=== PATIENT | male | born 1990 | race Hispanic/Latino ===

== ENCOUNTER 2020-10-04 09:59 | Emergency (ER) | payer SELFPAY ==
[2020-10-04 10:53] VITALS: BP 123/75
--- NOTE | 2020-10-04 11:42 | Emergency Department Report ---
ED Back Pain/Injury HPI - General Chief Complaint: Back Pain/Injury Stated Complaint: BACK PAIN Time Seen by Provider: 10/04/20 11:14 Source: patient Limitations: No Limitations - History of Present Illness Initial Comments: This is a 30-year-old male with no prior medical history who presents to ED complaining of left-sided lower back pain that he is training yesterday while he was lifting a heavy box. 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 Patient states yesterday he felt strain aching throbbing type pain on the left lower back and was unable to go to work today because of the pain. Patient states he was told to come in to be evaluated. Patient denies any urinary symptoms, fall or any other trauma. Patient states pain is localized to the lower back left. Denies abdominal pain, nausea vomiting or diarrhea. MD Complaint: back pain Similar Symptoms Previously: Yes Place: work Radiation: none Severity scale (0 -10): 4 Quality: aching Consistency: intermittent Improves With: none Worsens With: movement Context: while lifting Associated Symptoms: denies other symptoms. denies: confusion, weakness, numbness, difficulty walking, difficulty urinating, incontinence, constipation, nausea/vomiting - Related Data Previous Rx's Medication Instructions Recorded Last Taken Type Ibuprofen [Motrin 400 MG tab] 400 mg PO Q8H PRN #30 tablet 10/04/20 Unknown Rx methOCARBAMOL [Robaxin TAB] 500 mg PO BID #10 tab 10/04/20 Unknown Rx Allergies Allergy/AdvReac Type Severity Reaction Status Date / Time No Known Allergies Allergy Unverified 10/04/20 10:50 ED Review of Systems ROS: Stated complaint: BACK PAIN Other details as noted in HPI Comment: All other systems reviewed and negative ED Past Medical Hx - Past Medical History Previous Medical History?: No - Surgical History Past Surgical History?: No - Social History Smoking Status: Current Every Day Smoker Substance Use Type: None - Medications Home Medications: Home Medications Medication Instructions Recorded Confirmed Last Taken Type Ibuprofen [Motrin 400 MG tab] 400 mg PO Q8H PRN #30 tablet 10/04/20 Unknown Rx methOCARBAMOL [Robaxin TAB] 500 mg PO BID #10 tab 10/04/20 Unknown Rx ED Physical Exam - General Limitations: No Limitations General appearance: alert, in no apparent distress - Head Head exam: Present: atraumatic, normocephalic - Eye Eye exam: Present: normal appearance - ENT ENT exam: Present: mucous membranes moist - Neck Neck exam: Present: normal inspection - Respiratory Respiratory exam: Present: normal lung sounds bilaterally. Absent: respiratory distress - Cardiovascular Cardiovascular Exam: Present: regular rate, normal rhythm. Absent: systolic murmur, diastolic murmur, rubs, gallop - GI/Abdominal GI/Abdominal exam: Present: soft, normal bowel sounds - Rectal Rectal exam: Present: deferred - Extremities Exam Extremities exam: Present: normal inspection - Back Exam Back exam: Present: normal inspection, full ROM, tenderness (Mild tenderness to the palpation of the latissimus dorsi muscles., Normal spinal tenderness.). Absent: CVA tenderness (R), CVA tenderness (L) - Neurological Exam Neurological exam: Present: alert, oriented X3 - Psychiatric Psychiatric exam: Present: normal affect, normal mood - Skin Skin exam: Present: warm, dry, intact, normal color. Absent: rash ED Course Vital Signs 10/04/20 10:52 Temperature 98.7 F Pulse Rate 72 Respiratory 18 Rate Blood Pressure 123/75 O2 Sat by Pulse 98 Oximetry ED Medical Decision Making - Medical Decision Making 89year-old female presents to ED with myalgia of the lower back. Vital signs are normal patient is in no acute distress Discussed with patient follow-up with primary care physician. Discussed the patient and take medications as prescribed. Patient has no neurological deficit. Patient is alert and oriented 3 and understands all instructions given. Discussed heat compression 3 times a day. Critical care attestation.: If time is entered above; I have spent that time in minutes in the direct care of this critically ill patient, excluding procedure time. ED Disposition Clinical Impression: Strain of muscle, fascia and tendon of lower back, initial encounter Disposition: DC-01 TO HOME OR SELFCARE Is pt being admited?: No Does the pt Need Aspirin: No Condition: Stable Instructions: Lumbar Sprain, Muscle Strain, [id number] Additional Instructions: Make sure to follow up with the primary care physician as discussed. Take all your medications as you've been prescribed. If you have any worsening symptoms or develop new symptoms please return to ED immediately. Referrals: [facility] [Outside] - 3-5 Days [facility] [Outside] - 3-5 Days Forms: Work/School Release Form(ED) Time of Disposition: 12:06
== END 2020-10-04 12:25 | disposition home or self-care (01) ==
LOC: ED 09:59
DX: S39.012A Strain of muscle, fascia and tendon of lower back, initial encounter (principal); Z79.899 Other long term (current) drug therapy; X50.1XXA Overexertion from prolonged static or awkward postures, initial encounter; Y93.89 Activity, other specified; Y92.89 Other specified places as the place of occurrence of the external cause; Y99.8 Other external cause status
CPT/HCPCS: 99282

== ENCOUNTER 2021-03-21 09:44 | Emergency (ER) | payer SELFPAY ==
[2021-03-21 10:10] VITALS: BP 119/69
--- NOTE | 2021-03-21 10:18 | Emergency Department Report ---
ED Back Pain/Injury HPI - General Chief Complaint: Back Pain/Injury Stated Complaint: BACK INJURY Time Seen by Provider: 03/21/21 10:08 Source: patient Limitations: No Limitations - History of Present Illness Initial Comments: 30 year old male who reports no significant past medical history presents to the ER today with complaints of lower back pain/low back injury. Patient states that incident occurred this morning was at work. He states that he was transferring a 90 pound box of cabbage from a top shelf onto a pallet on the ground and when he twisted he started with pain in his upper lumbar area bilaterally. He describes the pain as sharp. Has been intermittent. He states that he feels it mainly when he bends over. He states that he did not hear any pops or feel any pops or snaps when he twisted. He denies any radiation of the pain into his abdomen or up into his back into his chest or down into his leg. He denies any associated abdominal pain. He denies any bowel or bladder incontinence. He denies any UTI symptoms. He denies any leg weakness, lower extremity numbness, tingling or any additional symptoms. He denies any fever or chills. He has not taken anything for the pain since the incident happened. He denies any history of prior back issues. He denies any fever or chills. Denies Illicit drug use. Complaint: back pain, back injury -: Sudden, This morning - Related Data Previous Rx's Medication Instructions Recorded Last Taken Type Ibuprofen [Motrin] 600 mg PO Q8H PRN #30 tablet 03/21/21 Unknown Rx Metaxalone [Skelaxin] 800 mg PO TID #30 tablet 03/21/21 Unknown Rx Allergies Allergy/AdvReac Type Severity Reaction Status Date / Time No Known Allergies Allergy Verified 03/21/21 10:09 ED Review of Systems ROS: Stated complaint: BACK INJURY Other details as noted in HPI Comment: All other systems reviewed and negative Constitutional: denies: chills, fever Eyes: denies: eye pain, eye discharge, vision change ENT: denies: ear pain, throat pain Respiratory: denies: cough, shortness of breath, SOB with exertion, SOB at rest, wheezing Cardiovascular: denies: chest pain, palpitations, dyspnea on exertion, edema, syncope, paroxysmal nocturnal dyspnea Endocrine: no symptoms reported Gastrointestinal: denies: abdominal pain, nausea, vomiting, diarrhea, constipation, hematemesis, hematochezia Genitourinary: denies: urgency, dysuria, frequency, hematuria, discharge, testicular pain, testicular mass Musculoskeletal: back pain. denies: joint swelling, arthralgia, myalgia Skin: denies: rash, lesions, change in color, change in hair/nails, pruritus Neurological: denies: headache, weakness, numbness, paresthesias, confusion, abnormal gait Psychiatric: denies: anxiety, depression, auditory hallucinations, visual hallucinations, homicidal thoughts, suicidal thoughts Hematological/Lymphatic: denies: easy bleeding, easy bruising, swollen glands ED Past Medical Hx - Past Medical History Previous Medical History?: No Additional medical history: denies - Surgical History Past Surgical History?: No Additional Surgical History: denies - Social History Smoking Status: Current Every Day Smoker Substance Use Type: None - Medications Home Medications: Home Medications Medication Instructions Recorded Confirmed Last Taken Type Ibuprofen [Motrin] 600 mg PO Q8H PRN #30 tablet 03/21/21 Unknown Rx Metaxalone [Skelaxin] 800 mg PO TID #30 tablet 03/21/21 Unknown Rx ED Physical Exam - General Limitations: No Limitations General appearance: alert, in no apparent distress - Head Head exam: Present: atraumatic, normocephalic, normal inspection - Eye Eye exam: Present: normal appearance, PERRL, EOMI Pupils: Present: normal accommodation - Neck Neck exam: Present: normal inspection, full ROM - Respiratory Respiratory exam: Present: normal lung sounds bilaterally. Absent: respiratory distress, wheezes, rales, rhonchi - Cardiovascular Cardiovascular Exam: Present: regular rate, normal rhythm, normal heart sounds - GI/Abdominal GI/Abdominal exam: Present: soft. Absent: distended, tenderness, guarding, rebound - Back Exam Back exam: Present: normal inspection, full ROM, paraspinal tenderness (mild and mainly left upper lumbar area). Absent: CVA tenderness (R), CVA tenderness (L), rash noted - Neurological Exam Neurological exam: Present: alert, oriented X3, CN II-XII intact, normal gait. Absent: motor sensory deficit - Psychiatric Psychiatric exam: Present: normal affect, normal mood - Skin Skin exam: Present: intact ED Course Vital Signs 03/21/21 09:51 Temperature 98.9 F Pulse Rate 84 Respiratory 18 Rate Blood Pressure 119/69 O2 Sat by Pulse 98 Oximetry ED Medical Decision Making - Medical Decision Making The patient presented with acute back pain. The patient is now resting com fortably and is alert, talkative, interactive and in no distress. The patient is neurologically intact and is ambulatory in the ED. the patient has no fever, no bowel or bladder incontinence, no saddle anesthesia and is otherwise alert and well-appearing. Suspect muscle strain at this time. His history, physical examination and current condition does not suggest the presence of acute spinal epidural abscess, acute epidural bleed, cauda equina syndrome, abdominal/thoracic aortic aneurysm, aortic dissection, UTI, kidney stone or other acute process requiring further testing, treatment or consultation in the emergency department. The vital signs have been stable. Discussed suspected diagnosis and treatment plan with patient. The patient condition is stable and appropriate for discharge. The patient will pursue further outpatient evaluation with the primary care physician or other designated or consulting physician as indicated in the discharge instructions. Critical care attestation.: If time is entered above; I have spent that time in minutes in the direct care of this critically ill patient, excluding procedure time. ED Disposition Clinical Impression: Lumbar strain Disposition: 01 HOME / SELF CARE / HOMELESS Is pt being admited?: No Does the pt Need Aspirin: No Condition: Stable Instructions: Back Exercises, [id number] Additional Instructions: I recommend that you take the motrin and the skelaxin as prescribed. I recommend that you do the back stretching exercises on your discharge instructions. Follow up with your PCP in 1 week. Return to ED if worse. Prescriptions: Ibuprofen [Motrin] 600 mg PO Q8H PRN #30 tablet PRN Reason: Pain Metaxalone [Skelaxin] 800 mg PO TID #30 tablet Referrals: BRITTANI REYES MD [Staff Physician] - 3-5 Days [facility] [Provider Group] - 3-5 Days Forms: Work/School Release Form(ED) Time of Disposition: 10:18
[2021-03-21] MEDS ORDERED: ACETAMINOPHEN 325 MG TAB PO ONE (10:19)
[2021-03-21] MEDS ORDERED: IBUPROFEN 600 MG TAB PO ONE (10:19)
== END 2021-03-21 10:39 | disposition home or self-care (01) ==
LOC: ED 09:44
DX: S39.012A Strain of muscle, fascia and tendon of lower back, initial encounter (principal); F17.200 Nicotine dependence, unspecified, uncomplicated; Z98.890 Other specified postprocedural states; X50.1XXA Overexertion from prolonged static or awkward postures, initial encounter; Y93.89 Activity, other specified; Y92.89 Other specified places as the place of occurrence of the external cause; Y99.0 Civilian activity done for income or pay
CPT/HCPCS: 99282